=== PATIENT | male | born 1965 | race Caucasian/White ===

== ENCOUNTER 2019-05-20 09:40 | Inpatient (IN) | payer OTHER ==
[2019-05-20 11:16] VITALS: BMI 21.4
--- NOTE | 2019-05-20 11:52 | HP ---
CIWA Score Nausea/Vomitin-Cont. Nausea/Vomiting Muscle Tremors: 2 Anxiety: 1-Mildly Anxious Agitation: 1-Slight > Activity Paroxysmal Sweats: 1-Minimal Palms Moist Orientation: 3-Disoriented Date>2 days Tacttile Disturbances: 1-Very Mild Itch/Numbness Auditory Disturbances: 0-None Visual Disturbances: 0-None Headache: 5-Severe CIWA-Ar Total Score: 21 - Admission Criteria OASAS Guidelines: Admission for Medically Managed Detox: Requires at least one of the followin. CIWA greater than 12 2. Seizures within the past 24 hours 3. Delirium tremens within the past 24 hours 4. Hallucinations within the past 24 hours 5. Acute intervention needed for co occurring medical disorder 6. Acute intervention needed for co occurring psychiatric disorder 7. Severe withdrawal that cannot be handled at a lower level of care (continued vomiting, continued diarrhea, abnormal vital signs) requiring intravenous medication and/or fluids 8. Admitting History and Physical - Admission History of Present Illness: 53 year old male with history of alcohol dependence with withdrawals. He was here in 2017 and completed detox and then he was abstinent until 2018 after which he relapsed. His 10/2018 and then he started drinking heavily again in 11/2018. He has blackouts last week but denies seizures. He is drinking 1 pint of vodka daily, last drank this morning. He is also using 5 bags of heroin daily, last used today. He is also using Xanax every other day, 1 pill every other day, last used yesterday. He smokes 1ppd daily, since he was 16 years old. PMH: Asthma, HTN Psurg: None Psych: None He is homeless and in the [facility] now. He denies any legal issues pending. History Source: Patient Limitations to Obtaining History: Intoxication, Poor Historian - Past Medical History Cardiovascular: Yes: HTN Pulmonary: Yes: Asthma - Past Surgical History Past Surgical History: Yes: None - Advance Directives Advance Directives: No: Living Will, Health Care Proxy, DNR - Smoking History Smoking history: Current every day smoker Have you smoked in the past 12 months: Yes Aproximately how many cigarettes per day: 20 - Alcohol/Substance Use Hx Alcohol Use: No (1 pint vodka daily) Number of Drinks Daily: 12 History of Substance Use: reports: Heroin, Tranquilizers - Social History Usual Living Arrangement: Yes: Alone Do you think of yourself as: Straight/Heterosexual ADL: Independent Occupation: unemployed sheetrock worker History of Recent Travel: No Admission [facility] - [facility] Allergies/Adverse Reactions: Allergies Allergy/AdvReac Type Severity Reaction Status Date / Time No Known Allergies Allergy Verified 05/20/19 11:08 - Ebola screening Have you traveled outside of the country in the last 21 days: No Have you had contact with anyone from an Ebola affected area: No Have you been sick,other than usual withdrawal symptoms: No Do you have a fever: No - Review of Systems Constitutional: Chills, Diaphoresis, Unintentional Wgt. Loss EENT: reports: No Symptoms Reported Respiratory: reports: No Symptoms reported Cardiac: reports: No Symptoms Reported GI: reports: Nausea, Abdominal cramping : reports: No Symptoms Reported Musculoskeletal: reports: No Symptoms Reported Integumentary: reports: No Symptoms Reported Neuro: reports: Headache Endocrine: reports: No Symptoms Reported Hematology: reports: No Symptoms Reported Psychiatric: reports: Judgement Intact, Mood/Affect Appropiate, Orientated x3 Other Systems: Reviewed and Negative Patient History - Patient Medical History Hx Anemia: No Hx Asthma: No Hx Chronic Obstructive Pulmonary Disease (COPD): No Hx Cancer: No Hx Cardiac Disorders: No Hx Congestive Heart Failure: No Hx Hypertension: No Hx Hypercholesterolemia: No Hx Pacemaker: No HX Cerebrovascular Accident: No Hx Seizures: No Hx Dementia: No Hx Diabetes: No Hx Gastrointestinal Disorders: No Hx Liver Disease: No Hx Genitourinary Disorders: No Hx Sexually Transmitted Disorders: No Hx Renal Disease (ESRD): No Hx Thyroid Disease: No Hx Human Immunodeficiency Virus (HIV): No Hx Hepatitis C: No Hx Depression: Yes Hx Suicide Attempt: No Hx Bipolar Disorder: No Hx Schizophrenia: No - Patient Surgical History Past Surgical History: No Hx Neurologic Surgery: No Hx Cataract Extraction: No Hx Cardiac Surgery: No Hx Lung Surgery: No Hx Breast Surgery: No Hx Breast Biopsy: No Hx Abdominal Surgery: No Hx Appendectomy: No Hx Cholecystectomy: No Hx Genitourinary Surgery: No Hx Section: No Hx Orthopedic Surgery: No Anesthesia Reaction: No - PPD History Previous Implant?: Yes Documented Results: Negative w/proof Implanted On Prior R Admission?: Yes Date: 09/06/17 Results: negative PPD to be Administered?: Yes - Smoking Cessation Smoking history: Current every day smoker Aproximately how many cigarettes per day: 20 Cigars Per Day: 0 Hx Chewing Tobacco Use: No Initiated information on smoking cessation: Yes 'Breaking Loose' booklet given: 05/20/19 - Substances abused Heroin Substance route: Inhalation Frequency: Daily Amount used: 5 bags Age of first use: 14 Date of last use: 05/20/19 Alprazolam (Xanax) Substance route: Oral Frequency: 3-6 times per week Amount used: 2 mg Age of first use: 28 Date of last use: 05/19/19 Alcohol Substance route: Oral Amount used: half pint of vodka Age of first use: 23 Date of last use: 05/20/19 Admission Physical Exam BHS - Vital Signs Vital Signs: Vital Signs - 24 hr 05/20/19 05/20/19 11:07 11:40 Temperature 97.2 F L 97.2 F L Pulse Rate 104 H 104 H Respiratory 16 16 Rate - Physical General Appearance: Yes: Alcohol on Breath, Intoxicated, Tremorous, Irritable, Sweating, Anxious HEENTM: Yes: EOMI, Hearing grossly Normal, Normal ENT Inspection, Normocephalic , Normal Voice, JUAN, Pharynx Normal, Tm's normal Respiratory: Yes: Chest Non-Tender, Lungs Clear, Normal Breath Sounds, No Respiratory Distress, No Accessory Muscle Use Neck: Yes: No masses,lesions,Nodules, Supple, Trachea in good position Breast: Yes: Within Normal Limits Cardiology: Yes: Regular Rhythm, S1, S2, Tachycardia Abdominal: Yes: Non Tender, Flat, Soft, Increased Bowel Sounds Genitourinary: Yes: Within Normal Limits Back: Yes: Normal Inspection Musculoskeletal: Yes: full range of Motion, Gait Steady, Pelvis Stable Extremities: Yes: Normal Capillary Refill, Normal Inspection, Normal Range of Motion, Non-Tender Neurological: Yes: in class special education teacher II-XII NML intact, Fully Oriented, Alert, Motor Strength 5/5, Normal Mood/Affect, Normal Response Integumentary: Yes: Normal Color, Warm Lymphatic: Yes: Within Normal Limits - Diagnostic (1) Alcohol dependence with uncomplicated withdrawal Current Visit: Yes Status: Acute (2) Insomnia Current Visit: Yes Status: Acute (3) Nicotine dependence Current Visit: Yes Status: Acute Qualifiers: Nicotine product type: cigarettes Substance use status: in withdrawal Qualified Code(s): F17.213 - Nicotine dependence, cigarettes, with withdrawal (4) Opioid dependence with withdrawal Current Visit: Yes Status: Acute (5) Weight loss Current Visit: Yes Status: Acute (6) Anxiety and depression Current Visit: Yes Status: Suspected Cleared for Admission S - Detox or Rehab [facility] Level of Care: Medically Managed Detox Regimen/Protocol: Methadone, Not Applicable (ativan protocol) Screened but not Admitted - Documentation of Visit Screened but not Admitted: No Breathalyzer - Breathalyzer Breathalyzer: 0.024 Urine Drug Screen - Test Device Lot number: [id number] Expiration date: 01/21/21 - Control Is test valid?: Yes - Results Drug screen NEGATIVE: No Urine drug screen results: MOP-Opiates, MTD-Methadone, BZO-Benzodiazepines Inpatient Rehab Admission - Rehab Decision to Admit Inpatient rehab admission?: No
[2019-05-20] MEDS ORDERED: MENTHOL/PHENOL 1 EACH UD MM PRN (11:59)
[2019-05-20] MEDS ORDERED: IBUPROFEN 400 MG TABLET (FP) PO PRN (11:59)
[2019-05-20] MEDS ORDERED: MELATONIN 5 MG TABLETS PO PRN (11:59)
[2019-05-20] MEDS ORDERED: hydrOXYzine PAMOATE 25 MG CAPSULE (FP) PO PRN (11:59)
[2019-05-20] MEDS ORDERED: MAG HYDROX/AL HYDROX/SIMETH 30 ML UNIT-DOSE CUP PO PRN (11:59)
[2019-05-20] MEDS ORDERED: MAGNESIUM CITRATE 300 ML BOTTLE PO PRN (11:59)
[2019-05-20] MEDS ORDERED: ACETAMINOPHEN 325 MG TABLET (FP) PO PRN ×2 (11:59)
[2019-05-20] MEDS ORDERED: BISMUTH SUBSALICYLATE 262 MG/15 ML BTL PO PRN (11:59)
[2019-05-20] MEDS ORDERED: LORazepam 1 MG TABLET PO PRN (11:59)
[2019-05-20] MEDS ORDERED: MAGNESIUM HYDROX 2400MG/30ML ORAL SUSPENSION 30 ML CUP PO PRN (11:59)
[2019-05-20] MEDS ORDERED: cloNIDine HCL 0.1 MG TABLET PO PRN (11:59)
[2019-05-20] MEDS ORDERED: METHADONE HCL 10 MG TABLET (FOR DETOX USE ONLY) PO ONE (12:55)
[2019-05-20] MEDS: METHOCARBAMOL 500 MG TABLET PO PRN (13:19)
[2019-05-20 15:10] LABS: MCH 30.5 pg (25.7-33.7); MCHC 33.4 g/dl (32.0-35.9); MEAN CELL VOLUME 91.2 fl (80-96); MEAN PLT VOLUME 8.5 fl (7.5-11.1); PLATELET COUNT 259 K/MM3 (134-434); RDW 13.4 % (11.9-15.9); WHITE BLOOD COUNT 4.6 K/mm3 (4.0-10.0)
[2019-05-20 15:17] LABS: ALBUMIN 3.9 g/dl (3.4-5.0); BILIRUBIN,TOTAL 0.5 mg/dL (0.2-1); BLOOD UREA NITROGEN 14.8 mg/dL (7-18); CREATININE 0.5 mg/dL (0.55-1.3); POTASSIUM 4.1 mmol/L (3.5-5.1); TOT PROT 7.4 g/dl (6.4-8.2)
[2019-05-20] MEDS: LORazepam 2 MG TABLET PO SCH ×2 (17:52→22:52)
[2019-05-20] MEDS: THIAMINE HCL 100 MG TABLET (FP) PO SCH (22:53)
[2019-05-21] MEDS: LORazepam 2 MG TABLET PO SCH ×4 (06:08→22:15)
[2019-05-21] MEDS ORDERED: METHADONE HCL 10 MG TABLET (FOR DETOX USE ONLY) ONE (09:08)
[2019-05-21] MEDS ORDERED: METHADONE HCL 5 MG TABLET (FOR DETOX USE ONLY) ONE (09:09)
--- NOTE | 2019-05-21 09:41 | PN ---
S CIWA - CIWA Score Nausea/Vomitin-Mild Nausea/No Vomiting Muscle Tremors: 3 Anxiety: 3 Agitation: 3 Paroxysmal Sweats: 2 Orientation: 0-Oriented Tacttile Disturbances: 1-Very Mild Itch/Numbness Auditory Disturbances: 1-Very Mild Visual Disturbances: 0-None Headache: 2-Mild CIWA-Ar Total Score: 16 BHS COWS - Scale Resting Pulse: 0= [place] 80 or Below Sweatin= Chills/Flushing Restless Observation: 0= Sits Still Pupil Size: 1= Pupils >than Normal Bone or Joint Aches: 2= Severe Diffuse Aches Runny Nose/ Eye Tearin= None GI Upset > 30mins: 2= Nausea/Diarrhea Tremor Observation of Outstretched Hands: 2= Slight Tremor Visible Yawning Observation: 0= None Anxiety or Irritability: 2=Irritable/Anxious Goose Flesh Skin: 3=Piloerection COWS Score: 13 BHS Progress Note (SOAP) Subjective: 53 years old male admitted on 05/20/19 for alcohol benzo and opiate withdrawal sx management trated with ativan and methadone detox regimen ate breakfast tolerated food and fluid well report callus on both feet hard scaly thick skin noted not bleed pain on deep palpation recommend pressure off from callus areas report mild headaches encourage tylenal administration Objective: 05/21/19 09:40 Vital Signs Temperature 97.8 F 05/21/19 09:04 Pulse Rate 65 05/21/19 09:04 Respiratory Rate 18 05/21/19 09:04 Blood Pressure 108/70 05/21/19 09:04 O2 Sat by Pulse Oximetry (%) Laboratory Last Values WBC 4.6 K/mm3 (4.0-10.0) 05/20/19 11:45 RBC 4.60 M/mm3 (4.00-5.60) 05/20/19 11:45 Hgb 14.0 GM/dL (11.7-16.9) 05/20/19 11:45 Hct 42.0 % (35.4-49) 05/20/19 11:45 MCV 91.2 fl (80-96) 05/20/19 11:45 MCH 30.5 pg (25.7-33.7) 05/20/19 11:45 MCHC 33.4 g/dl (32.0-35.9) 05/20/19 11:45 RDW 13.4 % (11.9-15.9) 05/20/19 11:45 Plt Count 259 K/MM3 (134-434) 05/20/19 11:45 MPV 8.5 fl (7.5-11.1) D 05/20/19 11:45 Sodium 139 mmol/L (136-145) 05/20/19 11:45 Potassium 4.1 mmol/L (3.5-5.1) 05/20/19 11:45 Chloride 103 mmol/L (98-107) 05/20/19 11:45 Carbon Dioxide 26 mmol/L (21-32) 05/20/19 11:45 Anion Gap 10 MMOL/L (8-16) 05/20/19 11:45 BUN 14.8 mg/dL (7-18) 05/20/19 11:45 Creatinine 0.5 mg/dL (0.55-1.3) L 05/20/19 11:45 Est GFR (CKD-EPI)AfAm 141.39 05/20/19 11:45 Est GFR (CKD-EPI)NonAf 122.00 05/20/19 11:45 Random Glucose 108 mg/dL (74-106) H 05/20/19 11:45 Calcium 9.0 mg/dL (8.5-10.1) 05/20/19 11:45 Total Bilirubin 0.5 mg/dL (0.2-1) 05/20/19 11:45 AST 23 U/L (15-37) 05/20/19 11:45 ALT 33 U/L (13-61) 05/20/19 11:45 Alkaline Phosphatase 100 U/L (45-117) 05/20/19 11:45 Total Protein 7.4 g/dl (6.4-8.2) 05/20/19 11:45 Albumin 3.9 g/dl (3.4-5.0) 05/20/19 11:45 lab noted Assessment: 05/21/19 09:40 alcohol benzo opiate withdrawal sx Plan: continue ativan and methadone detox regimen
[2019-05-21] MEDS ORDERED: METHADONE (DETOX) 20 MG, METHADONE (DETOX) 5 MG PO ONE (10:00)
[2019-05-21] MEDS: PRENATAL VITAMINS W/ FOLIC ACID TABLET (FP) PO SCH (10:05)
[2019-05-21] MEDS: NICOTINE 14 MG/24 HOURS TOPICAL PATCH TD SCH (10:05)
[2019-05-21] MEDS: METHOCARBAMOL 500 MG TABLET PO PRN (22:15)
[2019-05-21] MEDS: THIAMINE HCL 100 MG TABLET (FP) PO SCH (22:15)
[2019-05-22] MEDS: LORazepam 1 MG TABLET PO SCH ×4 (05:18→22:01)
[2019-05-22] MEDS ORDERED: METHADONE HCL 10 MG TABLET (FOR DETOX USE ONLY) PO ONE (10:00)
[2019-05-22] MEDS: NICOTINE 14 MG/24 HOURS TOPICAL PATCH TD SCH (10:13)
[2019-05-22] MEDS: PRENATAL VITAMINS W/ FOLIC ACID TABLET (FP) PO SCH (10:13)
--- NOTE | 2019-05-22 14:31 | PN ---
S CIWA - CIWA Score Nausea/Vomitin-Int. Nausea w/Dry Heave Muscle Tremors: 2 Anxiety: 1-Mildly Anxious Agitation: 1-Slight > Activity Paroxysmal Sweats: 1-Minimal Palms Moist Orientation: 0-Oriented Tacttile Disturbances: 1-Very Mild Itch/Numbness Auditory Disturbances: 0-None Visual Disturbances: 0-None Headache: 0-None Present CIWA-Ar Total Score: 10 BHS COWS - Scale Resting Pulse: 0= [place] 80 or Below Sweatin= Chills/Flushing Restless Observation: 1= Difficult to Sit Still Pupil Size: 1= Pupils >than Normal Bone or Joint Aches: 1= Mild Discomfort Runny Nose/ Eye Tearin= Nasal Congestion GI Upset > 30mins: 2= Nausea/Diarrhea Tremor Observation of Outstretched Hands: 1= Tremor [place], Not Seen Yawning Observation: 0= None Anxiety or Irritability: 1=Feels Anxious/Irritable Goose Flesh Skin: 0=Smooth Skin COWS Score: 9 BHS Progress Note (SOAP) Subjective: interrupted sleep, sweats, shakes , nausea, vomiting x 1 Objective: 05/22/19 14:31 Vital Signs Temperature 98.5 F 05/22/19 12:38 Pulse Rate 72 05/22/19 12:38 Respiratory Rate 18 05/22/19 12:38 Blood Pressure 114/71 05/22/19 12:38 O2 Sat by Pulse Oximetry (%) Laboratory Tests 05/20/19 05/20/19 05/20/19 11:45 11:45 11:45 WBC 4.6 RBC 4.60 Hgb 14.0 Hct 42.0 MCV 91.2 MCH 30.5 MCHC 33.4 RDW 13.4 Plt Count 259 MPV 8.5 D Sodium 139 Potassium 4.1 Chloride 103 Carbon Dioxide 26 Anion Gap 10 BUN 14.8 Creatinine 0.5 L Est GFR (CKD-EPI)AfAm 141.39 Est GFR (CKD-EPI)NonAf 122.00 Random Glucose 108 H Calcium 9.0 Total Bilirubin 0.5 AST 23 ALT 33 Alkaline Phosphatase 100 Total Protein 7.4 Albumin 3.9 RPR Titer Nonreactive pt aox3 lying in bed in nad. Assessment: 05/22/19 14:32 withdrawal sx's Plan: cont. detox increase fluids
[2019-05-22] MEDS: THIAMINE HCL 100 MG TABLET (FP) PO SCH (22:01)
[2019-05-23] MEDS ORDERED: LORazepam 0.5 MG TABLET PO PRN
[2019-05-23] MEDS: LORazepam 0.5 MG TABLET PO SCH ×4 (06:07→22:03)
[2019-05-23] MEDS ORDERED: METHADONE HCL 5 MG TABLET (FOR DETOX USE ONLY) ONE (08:55)
[2019-05-23] MEDS ORDERED: METHADONE HCL 10 MG TABLET (FOR DETOX USE ONLY) ONE (08:55)
[2019-05-23] MEDS ORDERED: METHADONE (DETOX) 10 MG, METHADONE (DETOX) 5 MG PO ONE (10:00)
[2019-05-23] MEDS: PRENATAL VITAMINS W/ FOLIC ACID TABLET (FP) PO SCH (10:28)
[2019-05-23] MEDS: NICOTINE 14 MG/24 HOURS TOPICAL PATCH TD SCH (10:29)
--- NOTE | 2019-05-23 11:19 | PN ---
[facility] CIWA - CIWA Score Nausea/Vomitin-No Nausea/No Vomiting Muscle Tremors: None Anxiety: 2 Agitation: 0-Normal Activity Paroxysmal Sweats: 3 Orientation: 0-Oriented Tacttile Disturbances: 0-None Auditory Disturbances: 0-None Visual Disturbances: 0-None Headache: 2-Mild CIWA-Ar Total Score: 7 S COWS - Scale Resting Pulse: 0= [place] 80 or Below Sweatin= Beads of Sweat on Face Restless Observation: 1= Difficult to Sit Still Pupil Size: 0= Normal to Room Light Bone or Joint Aches: 0= None Runny Nose/ Eye Tearin= None GI Upset > 30mins: 0= None Tremor Observation of Outstretched Hands: 0= None Yawning Observation: 1= 1-2x During Session Anxiety or Irritability: 2=Irritable/Anxious Goose Flesh Skin: 0=Smooth Skin COWS Score: 7 [facility] Progress Note (SOAP) Subjective: c/o headache, anxiety, and sweats. Objective: 05/23/19 11:17 Vital Signs 05/23/19 05/23/19 05/23/19 03:30 06:27 09:10 Temperature 97.3 F L 97.8 F Pulse Rate 62 69 Respiratory 18 18 18 Rate Blood Pressure 112/60 106/61 Laboratory Last Values WBC 4.6 K/mm3 (4.0-10.0) 05/20/19 11:45 RBC 4.60 M/mm3 (4.00-5.60) 05/20/19 11:45 Hgb 14.0 GM/dL (11.7-16.9) 05/20/19 11:45 Hct 42.0 % (35.4-49) 05/20/19 11:45 MCV 91.2 fl (80-96) 05/20/19 11:45 MCH 30.5 pg (25.7-33.7) 05/20/19 11:45 MCHC 33.4 g/dl (32.0-35.9) 05/20/19 11:45 RDW 13.4 % (11.9-15.9) 05/20/19 11:45 Plt Count 259 K/MM3 (134-434) 05/20/19 11:45 MPV 8.5 fl (7.5-11.1) D 05/20/19 11:45 Sodium 139 mmol/L (136-145) 05/20/19 11:45 Potassium 4.1 mmol/L (3.5-5.1) 05/20/19 11:45 Chloride 103 mmol/L (98-107) 05/20/19 11:45 Carbon Dioxide 26 mmol/L (21-32) 05/20/19 11:45 Anion Gap 10 MMOL/L (8-16) 05/20/19 11:45 BUN 14.8 mg/dL (7-18) 05/20/19 11:45 Creatinine 0.5 mg/dL (0.55-1.3) L 05/20/19 11:45 Est GFR (CKD-EPI)AfAm 141.39 05/20/19 11:45 Est GFR (CKD-EPI)NonAf 122.00 05/20/19 11:45 Random Glucose 108 mg/dL (74-106) H 05/20/19 11:45 Calcium 9.0 mg/dL (8.5-10.1) 05/20/19 11:45 Total Bilirubin 0.5 mg/dL (0.2-1) 05/20/19 11:45 AST 23 U/L (15-37) 05/20/19 11:45 ALT 33 U/L (13-61) 05/20/19 11:45 Alkaline Phosphatase 100 U/L (45-117) 05/20/19 11:45 Total Protein 7.4 g/dl (6.4-8.2) 05/20/19 11:45 Albumin 3.9 g/dl (3.4-5.0) 05/20/19 11:45 RPR Titer Nonreactive (NONREACTIVE) 05/20/19 11:45 Labs noted. Assessment: 05/23/19 11:17 AOX3, in no acute respiratory distress. Full ROM, ambulating in the unit. withdrawal symptoms. Plan: continue detox.
[2019-05-23] MEDS: THIAMINE HCL 100 MG TABLET (FP) PO SCH (22:03)
[2019-05-24] MEDS ORDERED: LORazepam 0.5 MG TABLET PO ONE (05:00)
--- NOTE | 2019-05-24 09:55 | PN ---
S CIWA - CIWA Score Nausea/Vomitin-No Nausea/No Vomiting Muscle Tremors: 1-None Visible, but [place] Anxiety: 2 Agitation: 1-Slight > Activity Paroxysmal Sweats: No Perspiration Orientation: 0-Oriented Tacttile Disturbances: 0-None Auditory Disturbances: 0-None Visual Disturbances: 0-None Headache: 0-None Present CIWA-Ar Total Score: 4 BHS COWS - Scale Resting Pulse: 0= [place] 80 or Below Sweatin= Chills/Flushing Restless Observation: 0= Sits Still Pupil Size: 0= Normal to Room Light Bone or Joint Aches: 1= Mild Discomfort Runny Nose/ Eye Tearin= None GI Upset > 30mins: 0= None Tremor Observation of Outstretched Hands: 1= Tremor [place], Not Seen Yawning Observation: 0= None Anxiety or Irritability: 1=Feels Anxious/Irritable Goose Flesh Skin: 0=Smooth Skin COWS Score: 4 S Progress Note (SOAP) Subjective: 53 years old male admitted on 05/20/19 for alcohol benzo opiate withdrawal sx management treated with ativan and methadone detox regimen patient tolerated well feeling better discuss aftercare with staff discuss medication assisted treatment program [employer] narcan from pharmacy Objective: 05/24/19 09:57 Vital Signs Temperature 98.3 F 05/24/19 09:13 Pulse Rate 70 05/24/19 09:13 Respiratory Rate 18 05/24/19 09:13 Blood Pressure 114/64 05/24/19 09:13 O2 Sat by Pulse Oximetry (%) Laboratory Last Values WBC 4.6 K/mm3 (4.0-10.0) 05/20/19 11:45 RBC 4.60 M/mm3 (4.00-5.60) 05/20/19 11:45 Hgb 14.0 GM/dL (11.7-16.9) 05/20/19 11:45 Hct 42.0 % (35.4-49) 05/20/19 11:45 MCV 91.2 fl (80-96) 05/20/19 11:45 MCH 30.5 pg (25.7-33.7) 05/20/19 11:45 MCHC 33.4 g/dl (32.0-35.9) 05/20/19 11:45 RDW 13.4 % (11.9-15.9) 05/20/19 11:45 Plt Count 259 K/MM3 (134-434) 05/20/19 11:45 MPV 8.5 fl (7.5-11.1) D 05/20/19 11:45 Sodium 139 mmol/L (136-145) 05/20/19 11:45 Potassium 4.1 mmol/L (3.5-5.1) 05/20/19 11:45 Chloride 103 mmol/L (98-107) 05/20/19 11:45 Carbon Dioxide 26 mmol/L (21-32) 05/20/19 11:45 Anion Gap 10 MMOL/L (8-16) 05/20/19 11:45 BUN 14.8 mg/dL (7-18) 05/20/19 11:45 Creatinine 0.5 mg/dL (0.55-1.3) L 05/20/19 11:45 Est GFR (CKD-EPI)AfAm 141.39 05/20/19 11:45 Est GFR (CKD-EPI)NonAf 122.00 05/20/19 11:45 Random Glucose 108 mg/dL (74-106) H 05/20/19 11:45 Calcium 9.0 mg/dL (8.5-10.1) 05/20/19 11:45 Total Bilirubin 0.5 mg/dL (0.2-1) 05/20/19 11:45 AST 23 U/L (15-37) 05/20/19 11:45 ALT 33 U/L (13-61) 05/20/19 11:45 Alkaline Phosphatase 100 U/L (45-117) 05/20/19 11:45 Total Protein 7.4 g/dl (6.4-8.2) 05/20/19 11:45 Albumin 3.9 g/dl (3.4-5.0) 05/20/19 11:45 RPR Titer Nonreactive (NONREACTIVE) 05/20/19 11:45 lab noted Assessment: 05/24/19 09:58 alcohol benzo opiate withdrawal sx Plan: continue ativan and methadone detox regimen
[2019-05-24] MEDS ORDERED: METHADONE HCL 10 MG TABLET (FOR DETOX USE ONLY) PO ONE (10:00)
[2019-05-24] MEDS: PRENATAL VITAMINS W/ FOLIC ACID TABLET (FP) PO SCH (10:04)
[2019-05-24] MEDS: NICOTINE 14 MG/24 HOURS TOPICAL PATCH TD SCH (10:05)
[2019-05-24] MEDS: METHOCARBAMOL 500 MG TABLET PO PRN (10:05)
[2019-05-24] MEDS: THIAMINE HCL 100 MG TABLET (FP) PO SCH (22:44)
[2019-05-25] MEDS ORDERED: METHADONE HCL 5 MG TABLET (FOR DETOX USE ONLY) PO ONE (06:00)
[2019-05-25 09:18] VITALS: BP 129/75; PULSE 74; TEMP 97.2
[2019-05-25] MEDS: PRENATAL VITAMINS W/ FOLIC ACID TABLET (FP) PO SCH (10:41)
[2019-05-25] MEDS: NICOTINE 14 MG/24 HOURS TOPICAL PATCH TD SCH (10:41)
--- NOTE | 2019-05-25 13:50 | DS ---
[facility] Detox Discharge Summary Admission Date: 05/20/19 Discharge Date: 05/25/19 - History Present History: Opioid Dependence, Sedative Dependence Additional Comments: 53 years old male admitted on 05/20/19 for alcohol benzo opiate withdrawal sx management treated with ativan and methadone detox regimen patient is alert oriented x 3 respiratory clear lung bilaterally on auscultation abdomen soft no rebound tenderness skin warm and dry - Physical Exam Results Vital Signs: Vital Signs Temperature 97.2 F L 05/25/19 09:17 Pulse Rate 74 05/25/19 09:17 Respiratory Rate 18 05/25/19 09:17 Blood Pressure 129/75 05/25/19 09:17 O2 Sat by Pulse Oximetry (%) Pertinent Admission Physical Exam Findings: alcohol benzo opiate withdrawal sx Laboratory Last Values WBC 4.6 K/mm3 (4.0-10.0) 05/20/19 11:45 RBC 4.60 M/mm3 (4.00-5.60) 05/20/19 11:45 Hgb 14.0 GM/dL (11.7-16.9) 05/20/19 11:45 Hct 42.0 % (35.4-49) 05/20/19 11:45 MCV 91.2 fl (80-96) 05/20/19 11:45 MCH 30.5 pg (25.7-33.7) 05/20/19 11:45 MCHC 33.4 g/dl (32.0-35.9) 05/20/19 11:45 RDW 13.4 % (11.9-15.9) 05/20/19 11:45 Plt Count 259 K/MM3 (134-434) 05/20/19 11:45 MPV 8.5 fl (7.5-11.1) D 05/20/19 11:45 Sodium 139 mmol/L (136-145) 05/20/19 11:45 Potassium 4.1 mmol/L (3.5-5.1) 05/20/19 11:45 Chloride 103 mmol/L (98-107) 05/20/19 11:45 Carbon Dioxide 26 mmol/L (21-32) 05/20/19 11:45 Anion Gap 10 MMOL/L (8-16) 05/20/19 11:45 BUN 14.8 mg/dL (7-18) 05/20/19 11:45 Creatinine 0.5 mg/dL (0.55-1.3) L 05/20/19 11:45 Est GFR (CKD-EPI)AfAm 141.39 05/20/19 11:45 Est GFR (CKD-EPI)NonAf 122.00 05/20/19 11:45 Random Glucose 108 mg/dL (74-106) H 05/20/19 11:45 Calcium 9.0 mg/dL (8.5-10.1) 05/20/19 11:45 Total Bilirubin 0.5 mg/dL (0.2-1) 05/20/19 11:45 AST 23 U/L (15-37) 05/20/19 11:45 ALT 33 U/L (13-61) 05/20/19 11:45 Alkaline Phosphatase 100 U/L (45-117) 05/20/19 11:45 Total Protein 7.4 g/dl (6.4-8.2) 05/20/19 11:45 Albumin 3.9 g/dl (3.4-5.0) 05/20/19 11:45 RPR Titer Nonreactive (NONREACTIVE) 05/20/19 11:45 lab noted - Treatment Hospital Course: Detox Protocol Followed, Detoxed Safely, Responded well, Discharged Condition Good, Rehab Referral Accepted Patient has Accepted [facility] - Medication Discharge Medications: Ambulatory Orders Naloxone HCl [Narcan] 4 mg NS ASDIR PRN #1 spray 05/21/19 - Diagnosis (1) Opioid abuse, uncomplicated Status: Acute (2) Alcohol dependence with uncomplicated withdrawal Status: Acute (3) Nicotine dependence Status: Acute Qualifiers: Nicotine product type: cigarettes Substance use status: in withdrawal Qualified Code(s): F17.213 - Nicotine dependence, cigarettes, with withdrawal (4) Sedative, hypnotic or anxiolytic dependence with withdrawal, uncomplicated Status: Acute (5) Weight loss Status: Acute - AMA Did Patient Leave Against Medical Advice: No CIWA Score - CIWA Score Nausea/Vomitin-No Nausea/No Vomiting Muscle Tremors: 1-None Visible, but [place] Anxiety: 1-Mildly Anxious Agitation: 0-Normal Activity Paroxysmal Sweats: No Perspiration Orientation: 0-Oriented Tacttile Disturbances: 0-None Auditory Disturbances: 0-None Visual Disturbances: 0-None Headache: 0-None Present CIWA-Ar Total Score: 2 COWS (PN) - Opiate Withdrawal Resting Pulse: 0= [place] 80 or Below Sweatin= Chills/Flushing Restless Observation: 0= Sits Still Pupil Size: 0= Normal to Room Light Bone or Joint Aches: 0= None Runny Nose/ Eye Tearin= None GI Upset > 30mins: 0= None Tremor Observation of Outstretched Hands: 0= None Yawning Observation: 0= None Anxiety or Irritability: 1=Feels Anxious/Irritable Goose Flesh Skin: 0=Smooth Skin COWS Score: 2
== END 2019-05-25 13:17 | disposition other institution (70) | DRG 773 ==
LOC: YASAS 09:40 → Y3N 12:45
PROVIDERS: ADMIT Allergy & Immunology; ATTEND Allergy & Immunology
PROC: HZ2ZZZZ Detoxification Services for Substance Abuse Treatment (ICD-10-PCS; principal; 2019-05-20)
DX: F10.230 Alcohol dependence with withdrawal, uncomplicated (principal); F11.23 Opioid dependence with withdrawal; F13.230 Sedative, hypnotic or anxiolytic dependence with withdrawal, uncomplicated; F17.213 Nicotine dependence, cigarettes, with withdrawal; F41.9 Anxiety disorder, unspecified; F32.9 Major depressive disorder, single episode, unspecified; G47.00 Insomnia, unspecified; I10 Essential (primary) hypertension; J45.909 Unspecified asthma, uncomplicated; L84 Corns and callosities; R63.4 Abnormal weight loss; Z68.21 Body mass index [BMI] 21.0-21.9, adult; Z59.0 Homelessness
CPT/HCPCS: 36415; 80053; 85027; 86593; J0735

== ENCOUNTER 2019-05-25 13:19 | Inpatient (IN) | payer OTHER ==
[2019-05-25] MEDS ORDERED: guaiFENesin 200 MG/10 ML 10 ML UNIT-DOSE CUPS PO PRN (13:53)
[2019-05-25] MEDS ORDERED: LOPERAMIDE HCL 2 MG CAPSULE PO PRN (13:53)
[2019-05-25] MEDS ORDERED: MENTHOL/PHENOL 1 EACH UD MM PRN (13:53)
[2019-05-25] MEDS ORDERED: NICOTINE POLACRILEX 2 MG GUM BUC PRN (13:53)
[2019-05-25] MEDS ORDERED: MAGNESIUM HYDROX 2400MG/30ML ORAL SUSPENSION 30 ML CUP PO PRN (13:53)
[2019-05-25] MEDS ORDERED: ACETAMINOPHEN 325 MG TABLET (FP) PO PRN (13:53)
[2019-05-25] MEDS ORDERED: IBUPROFEN 400 MG TABLET (FP) PO PRN (13:53)
[2019-05-25] MEDS ORDERED: MAG HYDROX/AL HYDROX/SIMETH 30 ML UNIT-DOSE CUP PO PRN (13:53)
[2019-05-25] MEDS ORDERED: MAGNESIUM CITRATE 300 ML BOTTLE PO PRN (13:53)
[2019-05-25] MEDS ORDERED: P-EPHED 60MG/TRIPROLIDI 2.5MG TABLET PO PRN (13:53)
--- NOTE | 2019-05-25 13:53 | HP ---
[facility] Rehab Assess/Revision - Admission History Admitted to Rehab from: [facility] Date of Admission to Rehab: 05/25/19 - Vital signs Vital Signs: Vital Signs Period Temp Pulse Resp BP Sys/Fay Pulse Ox Last 24 Hr 97.9 F 74 18 121/70 - Findings Detox History & Physical reviewed: Yes Concur with findings: Yes Comments/Additional Findings: transferred from detox to rehab admission as per protocol Inpatient Rehab Admission - Rehab Decision to Admit Inpatient rehab admission?: Yes - Initial Determination Are CD services needed?: Yes Free of communicable disease: Yes Not in need of hospitalization: Yes - Rehab Admission Criteria Previous failed treatment: Yes Poor recovery environment: Yes Comorbidities: Yes Lacks judgement: Yes Patient is meeting Inpatient Rehab admission criteria:: Yes
[2019-05-25] MEDS ORDERED: THIAMINE HCL 100 MG TABLET (FP) PO SCH (22:00)
[2019-05-25] MEDS ORDERED: MELATONIN 5 MG TABLETS PO PRN (22:00)
[2019-05-26 06:31] VITALS: BP 108/58; PULSE 63; TEMP 97.4
[2019-05-26] MEDS ORDERED: PRENATAL VITAMINS W/ FOLIC ACID TABLET (FP) PO SCH (10:00)
[2019-05-26] MEDS ORDERED: NICOTINE 14 MG/24 HOURS TOPICAL PATCH TD SCH (10:00)
--- NOTE | 2019-05-26 14:38 | DS ---
[facility] Rehab Discharge Summary - [facility] Rehab Discharge Summary Admission Date: 05/25/19 Discharge Date: 05/26/19 - History Present History: Alcohol dependence, Opioid dependence, Sedative dependence Pertinent Past History: Pt was transferred to rehab from detox yesterday. Pt states he wants to go home and will go to outpt treatment at [facility]. Pt completed treatment with ativan and methadone for polysubstance use: alcohol, benzo and opiates. Pt encouraged to for outpt MAT with methadone or Suboxone. Pt has narcan kit. PE alert and oriented lungs clear heart RRR h/o polysubstance use- f/u outpt and has PCP- Dr. Manzanares for HTN/asthma f/u on 06/08. Pt has meds until he is seen by PCP - Discharge Physical Exam Vital Signs: Vital Signs Temperature 97.4 F L 05/26/19 06:30 Pulse Rate 63 05/26/19 06:30 Respiratory Rate 18 05/26/19 06:30 Blood Pressure 108/58 L 05/26/19 06:30 O2 Sat by Pulse Oximetry (%) - Treatment Discharge Condition: Discharge condition good - Medication Discharge Medications: Ambulatory Orders Naloxone HCl [Narcan] 4 mg NS ASDIR PRN #1 spray 05/21/19 - Medication-Assisted Treatment (MAT) Medication-Assisted Treatment (MAT): No - Discharge Instructions Diet, activity, other medical instructions: Diet: Activity: Other medical instructions:
== END 2019-05-26 15:00 | disposition home or self-care (01) | DRG 772 ==
LOC: YASAS 13:19 → Y3W 13:20
PROVIDERS: ADMIT Neuromusculoskeletal Medicine & OMM; ATTEND Neuromusculoskeletal Medicine & OMM
PROC: HZ42ZZZ Group Counseling for Substance Abuse Treatment, Cognitive-Behavioral (ICD-10-PCS; principal; 2019-05-25)
DX: F10.20 Alcohol dependence, uncomplicated (principal); F11.20 Opioid dependence, uncomplicated; F13.20 Sedative, hypnotic or anxiolytic dependence, uncomplicated; I10 Essential (primary) hypertension; J45.909 Unspecified asthma, uncomplicated

== ENCOUNTER 2020-03-17 13:04 | Inpatient (IN) | payer OTHER ==
--- NOTE | 2020-03-17 13:38 | BHS.RME ---
Substance Use & Tx History - Substance Use History Alcohol Substance amount: one pint vodka Frequency of use: Daily Substance route: Oral Date of Last Use: 03/16/20 Heroin Substance amount: 9-12 bags Frequency of use: Daily Substance route: Inhalation (ex: sniffing or snorting) Date of Last Use: 03/17/20 Xanax Substance amount: 2 mg x 2 tabs Frequency of use: Daily Substance route: Oral Date of Last Use: 03/17/20 Marijuana/Hashish Substance amount: 1/8 daily Frequency of use: Daily Substance route: Smoking Date of Last Use: 03/16/20 Nicotine Substance amount: one pack Frequency of use: Daily Substance route: Smoking Date of Last Use: 03/17/20 - Last Treatment Date of last treatment: AprMay 2019, detox and one day rehab Physical/Psych/Mental Status - Behavior General Behavior: Increased activity (restlessness, agitation) Eye Contact: Normal - Cooperativeness Cooperativeness: Cooperative - Thinking Thought Processes: Tight Thought content: Future oriented - Physical Health Problems Is patient presently having any pain?: No Does patient presently have any injuries (include location): No Does patient currently have a fever: No COWS - Scale Resting Pulse: 1= [place] 81-100 Sweatin=Flushed/Facial Moisture Restless Observation: 1= Difficult to Sit Still Pupil Size: 0= Normal to Room Light Bone or Joint Aches: 1= Mild Discomfort Runny Nose/ Eye Tearin= Runny Nose/Eyes GI Upset > 30mins: 1= Stomach Cramp Tremor Observation: 2= Slight Tremor Visible Yawning Observation: 0= None Anxiety or Irritability: 2=Irritable/Anxious Goose Flesh Skin: 0=Smooth Skin COWS Score: 12 CIWA Nausea/Vomitin-Mild Nausea/No Vomiting Muscle Tremors: 3 Anxiety: 3 Agitation: 2 Paroxysmal Sweats: 3 Orientation: 0-Oriented Tacttile Disturbances: 0-None Auditory Disturbances: 0-None Visual Disturbances: 0-None Headache: 0-None Present CIWA-Ar Total Score: 12
[2020-03-17 14:36] VITALS: BMI 20.9
--- NOTE | 2020-03-17 14:46 | HP ---
COWS - Scale Resting Pulse: 1= [place] 81-100 Sweatin=Flushed/Facial Moisture Restless Observation: 1= Difficult to Sit Still Pupil Size: 0= Normal to Room Light Bone or Joint Aches: 1= Mild Discomfort Runny Nose/ Eye Tearin= Runny Nose/Eyes GI Upset > 30mins: 1= Stomach Cramp Tremor Observation: 2= Slight Tremor Visible Yawning Observation: 0= None Anxiety or Irritability: 2=Irritable/Anxious Goose Flesh Skin: 0=Smooth Skin COWS Score: 12 CIWA Score Nausea/Vomitin-Mild Nausea/No Vomiting Muscle Tremors: 3 Anxiety: 3 Agitation: 2 Paroxysmal Sweats: 3 Orientation: 0-Oriented Tacttile Disturbances: 0-None Auditory Disturbances: 0-None Visual Disturbances: 0-None Headache: 0-None Present CIWA-Ar Total Score: 12 - Admission Criteria OASAS Guidelines: Admission for Medically Managed Detox: Requires at least one of the followin. CIWA greater than 12 2. Seizures within the past 24 hours 3. Delirium tremens within the past 24 hours 4. Hallucinations within the past 24 hours 5. Acute intervention needed for co occurring medical disorder 6. Acute intervention needed for co occurring psychiatric disorder 7. Severe withdrawal that cannot be handled at a lower level of care (continued vomiting, continued diarrhea, abnormal vital signs) requiring intravenous medication and/or fluids 8. 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 He was here in 04/2019, and completed detox and then was abstinent for 2 weeks after which he relapsed. alcohol: He is drinking 1 pint of vodka daily, last drank last night, h/o blackouts last week but denies seizures. He is also using 9-12, sniffing bags of heroin daily, last used today- no h/o OD He is also using Xanax 2mg- 1 pill every other day, last used yesterday. He smokes 1ppd daily, since he was 16 years old. PMH: Asthma, HTN Psurg: None Psych: None He is homeless and in the intermediate system now. He denies any legal issues pending. ESSENCE- 0 Utox- Fen, Mop - Ebola screening Have you traveled outside of the country in the last 21 days: No Have you had contact with anyone from an Ebola affected area: No Have you been sick,other than usual withdrawal symptoms: No Do you have a fever: No - Review of Systems Constitutional: No Symptoms Reported EENT: reports: No Symptoms Reported Respiratory: reports: No Symptoms reported Cardiac: reports: No Symptoms Reported GI: reports: No Symptoms Reported : reports: No Symptoms Reported Musculoskeletal: reports: No Symptoms Reported Integumentary: reports: No Symptoms Reported Neuro: reports: No Symptoms reported Endocrine: reports: No Symptoms Reported Hematology: reports: No Symptoms Reported Psychiatric: reports: No Sypmtoms Reported Other Systems: Reviewed and Negative Patient History - Patient Medical History Hx Anemia: No Hx Asthma: Yes Hx Chronic Obstructive Pulmonary Disease (COPD): No Hx Cancer: No Hx Cardiac Disorders: No Hx Congestive Heart Failure: No Hx Hypertension: No Hx Hypercholesterolemia: No Hx Pacemaker: No HX Cerebrovascular Accident: No Hx Seizures: No Hx Dementia: No Hx Diabetes: No Hx Gastrointestinal Disorders: No Hx Liver Disease: No Hx Genitourinary Disorders: No Hx Sexually Transmitted Disorders: No Hx Renal Disease (ESRD): No Hx Thyroid Disease: No Hx Human Immunodeficiency Virus (HIV): No Hx Hepatitis C: No Hx Depression: No Hx Suicide Attempt: No Hx Bipolar Disorder: No Hx Schizophrenia: No - Patient Surgical History Past Surgical History: No Hx Neurologic Surgery: No Hx Cataract Extraction: No Hx Cardiac Surgery: No Hx Lung Surgery: No Hx Breast Surgery: No Hx Breast Biopsy: No Hx Abdominal Surgery: No Hx Appendectomy: No Hx Cholecystectomy: No Hx Genitourinary Surgery: No Hx Section: No Hx Orthopedic Surgery: No Anesthesia Reaction: No - PPD History Previous Implant?: Yes Documented Results: Negative w/o proof Implanted On Prior [facility] Admission?: Yes Date: 09/06/17 Results: 0 mm PPD to be Administered?: Yes - Smoking Cessation Smoking history: Current every day smoker Have you smoked in the past 12 months: Yes Aproximately how many cigarettes per day: 20 Cigars Per Day: 0 Hx Chewing Tobacco Use: No Initiated information on smoking cessation: Yes 'Breaking Loose' booklet given: 03/17/20 - Substance & Tx. History Hx Alcohol Use: Yes Hx Substance Use: Yes Substance Use Type: Alcohol, Heroin, Opiates, Tranquilizers Hx Substance Use Treatment: Yes Admission Physical Exam [facility] - Vital Signs Vital Signs: Vital Signs - 24 hr 03/17/20 14:35 Temperature 97.5 F L Pulse Rate 82 Respiratory 20 Rate Blood Pressure 118/79 - Physical General Appearance: Yes: Within Normal Limits HEENTM: Yes: Within Normal Limits, EOMI, Hearing grossly Normal, Normal Voice Respiratory: Yes: Within Normal Limits, Lungs Clear Neck: Yes: Within Normal Limits Cardiology: Yes: Within Normal Limits Abdominal: Yes: Within Normal Limits Genitourinary: Yes: Within Normal Limits Back: Yes: Within Normal Limits Musculoskeletal: Yes: Within Normal Limits Extremities: Yes: Within Normal Limits Neurological: Yes: Within Normal Limits Integumentary: Yes: Within Normal Limits Lymphatic: Yes: Within Normal Limits - Diagnostic (1) Alcohol dependence with uncomplicated withdrawal Current Visit: No Status: Acute (2) Nicotine dependence Current Visit: No Status: Acute Qualifiers: Nicotine product type: cigarettes Substance use status: in withdrawal Qualified Code(s): F17.213 - Nicotine dependence, cigarettes, with withdrawal (3) Opioid dependence with withdrawal Current Visit: No Status: Acute (4) Sedative, hypnotic or anxiolytic dependence with withdrawal, uncomplicated Current Visit: No Status: Acute (5) Weight loss Current Visit: No Status: Acute Breathalyzer - Breathalyzer Breathalyzer: 0 Urine Drug Screen - Test Device Lot number: [id number] Expiration date: 09/29/21 - Control Is test valid?: Yes - Results Drug screen NEGATIVE: No Urine drug screen results: FEN-Fentanyl, MOP-Opiates Inpatient Rehab Admission - Rehab Decision to Admit Inpatient rehab admission?: No
[2020-03-17] MEDS ORDERED: MENTHOL/PHENOL 1 EACH UD MM PRN (14:51)
[2020-03-17] MEDS ORDERED: ONDANSETRON *ODT* 4 MG TABLET SL PRN (14:51)
[2020-03-17] MEDS ORDERED: MAG HYDROX/AL HYDROX/SIMETH 30 ML UNIT-DOSE CUP PO PRN (14:51)
[2020-03-17] MEDS ORDERED: MAGNESIUM CITRATE 300 ML BOTTLE PO PRN (14:51)
[2020-03-17] MEDS ORDERED: BISMUTH SUBSALICYLATE 262 MG/15 ML BTL PO PRN (14:51)
[2020-03-17] MEDS ORDERED: IBUPROFEN 400 MG TABLET (FP) PO PRN (14:51)
[2020-03-17] MEDS ORDERED: ACETAMINOPHEN 325 MG TABLET (FP) PO PRN ×2 (14:51)
[2020-03-17] MEDS ORDERED: NICOTINE POLACRILEX 2 MG GUM BUC PRN (14:51)
[2020-03-17] MEDS ORDERED: MAGNESIUM HYDROX 2400MG/30ML ORAL SUSPENSION 30 ML CUP PO PRN (14:51)
[2020-03-17] MEDS ORDERED: ALBUTEROL SO4 HFA INHALER IH PRN (14:52)
[2020-03-17] MEDS ORDERED: chlordiazePOXIDE HCL 25 MG CAPSULE PO ONE (14:53)
[2020-03-17] MEDS ORDERED: chlordiazePOXIDE HCL 25 MG CAPSULE PO PRN (14:53)
[2020-03-17] MEDS ORDERED: METHADONE HCL 10 MG TABLET (FOR DETOX USE ONLY) PO ONE (14:54)
[2020-03-17] MEDS ORDERED: cloNIDine HCL 0.1 MG TABLET PO PRN (14:54)
[2020-03-17] MEDS: chlordiazePOXIDE HCL 25 MG CAPSULE PO SCH ×2 (18:14→23:11)
[2020-03-17] MEDS: hydrOXYzine PAMOATE 25 MG CAPSULE (FP) PO SCH ×2 (18:17→23:10)
[2020-03-17] MEDS: MELATONIN 5 MG TABLETS PO SCH (23:10)
[2020-03-17] MEDS: THIAMINE HCL 100 MG TABLET (FP) PO SCH (23:11)
[2020-03-18] MEDS: chlordiazePOXIDE HCL 25 MG CAPSULE PO SCH ×4 (06:26→23:10)
[2020-03-18] MEDS: hydrOXYzine PAMOATE 25 MG CAPSULE (FP) PO SCH (06:27)
[2020-03-18] MEDS ORDERED: ALBUTEROL SO4 HFA INHALER IH PRN (08:41)
[2020-03-18] MEDS ORDERED: METHADONE HCL 5 MG TABLET (FOR DETOX USE ONLY) ONE (09:28)
[2020-03-18] MEDS ORDERED: METHADONE HCL 10 MG TABLET (FOR DETOX USE ONLY) ONE (09:28)
[2020-03-18] MEDS ORDERED: METHADONE (DETOX) 20 MG, METHADONE (DETOX) 5 MG PO ONE (10:00)
[2020-03-18 10:14] LABS: HEMATOCRIT 42.1 % (35.4-49); HEMOGLOBIN 14.1 GM/dL (11.7-16.9); MCH 30.6 pg (25.7-33.7); MCHC 33.5 g/dl (32.0-35.9); MEAN CELL VOLUME 91.2 fl (80-96); PLATELET COUNT 249 K/MM3 (134-434); RBC 4.62 M/mm3 (4.00-5.60); RDW 13.3 % (11.9-15.9); WHITE BLOOD COUNT 6.4 K/mm3 (4.0-10.0)
[2020-03-18 10:19] LABS: BILIRUBIN,TOTAL 1.1 mg/dL (0.2-1); BLOOD UREA NITROGEN 15.1 mg/dL (7-18); CALCIUM 8.8 mg/dL (8.5-10.1); CREATININE 0.7 mg/dL (0.55-1.3); POTASSIUM 4.4 mmol/L (3.5-5.1); TOT PROT 7.6 g/dl (6.4-8.2)
[2020-03-18] MEDS: PRENATAL VITAMINS W/ FOLIC ACID TABLET (FP) PO SCH (10:55)
--- NOTE | 2020-03-18 12:17 | PN ---
[facility] CIWA - CIWA Score Nausea/Vomitin-No Nausea/No Vomiting Muscle Tremors: 3 Anxiety: 3 Agitation: 3 Paroxysmal Sweats: 2 Orientation: 0-Oriented Tacttile Disturbances: 0-None Auditory Disturbances: 0-None Visual Disturbances: 0-None Headache: 0-None Present CIWA-Ar Total Score: 11 S COWS - Scale Resting Pulse: 0= [place] 80 or Below Sweatin= Chills/Flushing Restless Observation: 1= Difficult to Sit Still Pupil Size: 0= Normal to Room Light Bone or Joint Aches: 1= Mild Discomfort Runny Nose/ Eye Tearin= Nasal Congestion GI Upset > 30mins: 0= None Tremor Observation of Outstretched Hands: 1= Tremor [place], Not Seen Yawning Observation: 1= 1-2x During Session Anxiety or Irritability: 2=Irritable/Anxious Goose Flesh Skin: 0=Smooth Skin COWS Score: 8 [facility] Progress Note (SOAP) Subjective: anxiety sweats agitation restless body aches interrupted sleep Objective: 03/18/20 12:14 Vital Signs Temperature 98.4 F 03/18/20 08:48 Pulse Rate 66 03/18/20 08:48 Respiratory Rate 17 03/18/20 08:48 Blood Pressure 130/78 03/18/20 08:48 O2 Sat by Pulse Oximetry (%) 98 03/18/20 08:48 Laboratory Tests 03/18/20 03/18/20 03/18/20 08:00 08:00 08:00 WBC 6.4 RBC 4.62 Hgb 14.1 Hct 42.1 MCV 91.2 MCH 30.6 MCHC 33.5 RDW 13.3 Plt Count 249 MPV 10.0 D Sodium 135 L Potassium 4.4 Chloride 97 L Carbon Dioxide 31 Anion Gap 6 L BUN 15.1 Creatinine 0.7 Est GFR (CKD-EPI)AfAm 122.27 Est GFR (CKD-EPI)NonAf 105.50 Random Glucose 130 H Calcium 8.8 Total Bilirubin 1.1 H AST 20 ALT 24 Alkaline Phosphatase 116 Total Protein 7.6 Albumin 4.0 Syphilis Serology Non-reactive labs noted aaox3 ambulating no acute distress Assessment: 03/18/20 12:16 withdrawals Plan: continue detox increase fluids
[2020-03-18] MEDS ORDERED: MASKS NR ONE (15:34)
[2020-03-18] MEDS: THIAMINE HCL 100 MG TABLET (FP) PO SCH (23:10)
[2020-03-18] MEDS: MELATONIN 5 MG TABLETS PO SCH (23:12)
[2020-03-19] MEDS: chlordiazePOXIDE HCL 25 MG CAPSULE PO SCH ×4 (05:50→22:17)
[2020-03-19] MEDS ORDERED: METHADONE HCL 10 MG TABLET (FOR DETOX USE ONLY) PO ONE (10:00)
[2020-03-19] MEDS: PRENATAL VITAMINS W/ FOLIC ACID TABLET (FP) PO SCH (10:31)
--- NOTE | 2020-03-19 15:05 | PN ---
S CIWA - CIWA Score Nausea/Vomitin-No Nausea/No Vomiting Muscle Tremors: 2 Anxiety: 3 Agitation: 2 Paroxysmal Sweats: 2 Orientation: 0-Oriented Tacttile Disturbances: 2-Mild Itch/Numbness/Burn Auditory Disturbances: 1-Very Mild Visual Disturbances: 0-None Headache: 0-None Present CIWA-Ar Total Score: 12 [facility] COWS - Scale Resting Pulse: 0= [place] 80 or Below Sweatin= Chills/Flushing Restless Observation: 1= Difficult to Sit Still Pupil Size: 0= Normal to Room Light Bone or Joint Aches: 2= Severe Diffuse Aches Runny Nose/ Eye Tearin= None GI Upset > 30mins: 0= None Tremor Observation of Outstretched Hands: 2= Slight Tremor Visible Yawning Observation: 1= 1-2x During Session Anxiety or Irritability: 2=Irritable/Anxious Goose Flesh Skin: 0=Smooth Skin COWS Score: 9 [facility] Progress Note (SOAP) Subjective: Tremors, Sweating, Anxious, Fatigue, Interrupted Sleep. Objective: Patient A & O X 3, Observed Ambulating on Detox Unit Unassisted. In No Acute Distress. 03/19/20 15:04 Vital Signs Temperature 98.9 F 03/19/20 12:40 Pulse Rate 75 03/19/20 12:40 Respiratory Rate 18 03/19/20 12:40 Blood Pressure 132/79 03/19/20 12:40 O2 Sat by Pulse Oximetry (%) 100 03/19/20 12:40 Laboratory Tests 03/17/20 03/18/20 03/18/20 15:15 08:00 08:00 WBC 6.4 RBC 4.62 Hgb 14.1 Hct 42.1 MCV 91.2 MCH 30.6 MCHC 33.5 RDW 13.3 Plt Count 249 MPV 10.0 D Sodium Potassium Chloride Carbon Dioxide Anion Gap BUN Creatinine Est GFR (CKD-EPI)AfAm Est GFR (CKD-EPI)NonAf Random Glucose Calcium Total Bilirubin AST ALT Alkaline Phosphatase Total Protein Albumin Syphilis Serology Non-reactive COVID-19 (BENNY) Not detected 03/18/20 08:00 WBC RBC Hgb Hct MCV MCH MCHC RDW Plt Count MPV Sodium 135 L Potassium 4.4 Chloride 97 L Carbon Dioxide 31 Anion Gap 6 L BUN 15.1 Creatinine 0.7 Est GFR (CKD-EPI)AfAm 122.27 Est GFR (CKD-EPI)NonAf 105.50 Random Glucose 130 H Calcium 8.8 Total Bilirubin 1.1 H AST 20 ALT 24 Alkaline Phosphatase 116 Total Protein 7.6 Albumin 4.0 Syphilis Serology COVID-19 (BENNY) Lab results noted. Assessment: 03/19/20 15:05 WITHDRAWAL SYMPTOMS. Plan: Continue Detox. Increase Daily Oral Water Intake.
[2020-03-19] MEDS: LIDOCAINE 5% TOPICAL PATCH TP SCH (15:55)
[2020-03-19] MEDS: LIDOCAINE PATCH REMOVAL MC SCH (22:17)
[2020-03-19] MEDS: MELATONIN 5 MG TABLETS PO SCH (22:17)
[2020-03-19] MEDS: THIAMINE HCL 100 MG TABLET (FP) PO SCH (22:17)
[2020-03-20] MEDS ORDERED: chlordiazePOXIDE HCL 10 MG CAPSULE PO PRN
[2020-03-20] MEDS: chlordiazePOXIDE HCL 10 MG CAPSULE PO SCH ×4 (05:47→22:47)
[2020-03-20] MEDS ORDERED: METHADONE (DETOX) 10 MG, METHADONE (DETOX) 5 MG PO ONE (10:00)
[2020-03-20] MEDS ORDERED: METHADONE HCL 5 MG TABLET (FOR DETOX USE ONLY) ONE (10:09)
[2020-03-20] MEDS ORDERED: METHADONE HCL 10 MG TABLET (FOR DETOX USE ONLY) ONE (10:09)
[2020-03-20] MEDS: PRENATAL VITAMINS W/ FOLIC ACID TABLET (FP) PO SCH (10:32)
[2020-03-20] MEDS: METHOCARBAMOL 500 MG TABLET PO PRN (10:32)
[2020-03-20] MEDS: LIDOCAINE 5% TOPICAL PATCH TP SCH (10:33)
--- NOTE | 2020-03-20 11:01 | PN ---
[facility] CIWA - CIWA Score Nausea/Vomitin-No Nausea/No Vomiting Muscle Tremors: 2 Anxiety: 4-Mod. Anxious/Guarded Agitation: 1-Slight > Activity Paroxysmal Sweats: 1-Minimal Palms Moist Orientation: 0-Oriented Tacttile Disturbances: 0-None Auditory Disturbances: 0-None Visual Disturbances: 0-None Headache: 0-None Present CIWA-Ar Total Score: 8 [facility] Progress Note (SOAP) Subjective: Complaints of anxiety, tremors, weakness, and sweats. Objective: 03/20/20 11:00 Vital Signs 03/20/20 03/20/20 05:30 08:25 Temperature 97.8 F 97.7 F Pulse Rate 65 77 Respiratory 16 18 Rate Blood Pressure 115/64 131/76 O2 Sat by Pulse 96 96 Oximetry (%) Laboratory Last Values WBC 6.4 K/mm3 (4.0-10.0) 03/18/20 08:00 RBC 4.62 M/mm3 (4.00-5.60) 03/18/20 08:00 Hgb 14.1 GM/dL (11.7-16.9) 03/18/20 08:00 Hct 42.1 % (35.4-49) 03/18/20 08:00 MCV 91.2 fl (80-96) 03/18/20 08:00 MCH 30.6 pg (25.7-33.7) 03/18/20 08:00 MCHC 33.5 g/dl (32.0-35.9) 03/18/20 08:00 RDW 13.3 % (11.9-15.9) 03/18/20 08:00 Plt Count 249 K/MM3 (134-434) 03/18/20 08:00 MPV 10.0 fl (7.5-11.1) D 03/18/20 08:00 Sodium 135 mmol/L (136-145) L 03/18/20 08:00 Potassium 4.4 mmol/L (3.5-5.1) 03/18/20 08:00 Chloride 97 mmol/L (98-107) L 03/18/20 08:00 Carbon Dioxide 31 mmol/L (21-32) 03/18/20 08:00 Anion Gap 6 MMOL/L (8-16) L 03/18/20 08:00 BUN 15.1 mg/dL (7-18) 03/18/20 08:00 Creatinine 0.7 mg/dL (0.55-1.3) 03/18/20 08:00 Est GFR (CKD-EPI)AfAm 122.27 03/18/20 08:00 Est GFR (CKD-EPI)NonAf 105.50 03/18/20 08:00 Random Glucose 130 mg/dL (74-106) H 03/18/20 08:00 Calcium 8.8 mg/dL (8.5-10.1) 03/18/20 08:00 Total Bilirubin 1.1 mg/dL (0.2-1) H 03/18/20 08:00 AST 20 U/L (15-37) 03/18/20 08:00 ALT 24 U/L (13-61) 03/18/20 08:00 Alkaline Phosphatase 116 U/L (45-117) 03/18/20 08:00 Total Protein 7.6 g/dl (6.4-8.2) 03/18/20 08:00 Albumin 4.0 g/dl (3.4-5.0) 03/18/20 08:00 Syphilis Serology Non-reactive (NONREACTIVE) 03/18/20 08:00 COVID-19 (BENNY) Not detected (Not Detected) 03/17/20 15:15 Labs noted. Assessment: 03/20/20 11:00 Alert and oriented x3, in no acute respiratory distress. Full ROM, ambulatory in the unit without assistance. Skin warm to touch. Withdrawal symptoms. Plan: Continue detox protocol.
[2020-03-20] MEDS: THIAMINE HCL 100 MG TABLET (FP) PO SCH (22:47)
[2020-03-20] MEDS: MELATONIN 5 MG TABLETS PO SCH (22:48)
[2020-03-20] MEDS: LIDOCAINE PATCH REMOVAL MC SCH (22:48)
[2020-03-20] MEDS: hydrOXYzine PAMOATE 25 MG CAPSULE (FP) PO PRN (22:49)
[2020-03-21] MEDS: chlordiazePOXIDE HCL 10 MG CAPSULE PO SCH ×2 (05:35→18:01)
--- NOTE | 2020-03-21 08:04 | PN ---
[facility] CIWA - CIWA Score Nausea/Vomitin-No Nausea/No Vomiting Muscle Tremors: 2 Anxiety: 2 Agitation: 1-Slight > Activity Paroxysmal Sweats: No Perspiration Orientation: 0-Oriented Tacttile Disturbances: 1-Very Mild Itch/Numbness Auditory Disturbances: 0-None Visual Disturbances: 0-None Headache: 1-Very Mild CIWA-Ar Total Score: 7 S COWS - Scale Resting Pulse: 0= [place] 80 or Below Sweatin= No chills or Flushing Restless Observation: 0= Sits Still Pupil Size: 0= Normal to Room Light Bone or Joint Aches: 1= Mild Discomfort Runny Nose/ Eye Tearin= Nasal Congestion GI Upset > 30mins: 1= Stomach Cramp Tremor Observation of Outstretched Hands: 2= Slight Tremor Visible Yawning Observation: 0= None Anxiety or Irritability: 2=Irritable/Anxious Goose Flesh Skin: 0=Smooth Skin COWS Score: 7 [facility] Progress Note (SOAP) Subjective: alert,irritable,anxious,interrupted sleep,,pain in the body aching pain Objective: 03/21/20 12:16 Vital Signs Temperature 97.3 F L 03/21/20 08:23 Pulse Rate 67 03/21/20 08:23 Respiratory Rate 18 03/21/20 08:23 Blood Pressure 116/73 03/21/20 08:23 O2 Sat by Pulse Oximetry (%) 96 03/21/20 05:29 Assessment: 03/21/20 12:17 withdrawal symptom Plan: continue detox methadone and librium regimen
[2020-03-21] MEDS ORDERED: METHADONE HCL 10 MG TABLET (FOR DETOX USE ONLY) PO ONE (10:00)
[2020-03-21] MEDS: METHOCARBAMOL 500 MG TABLET PO PRN (10:34)
[2020-03-21] MEDS: LIDOCAINE 5% TOPICAL PATCH TP SCH (10:34)
[2020-03-21] MEDS: hydrOXYzine PAMOATE 25 MG CAPSULE (FP) PO PRN (10:34)
[2020-03-21] MEDS: PRENATAL VITAMINS W/ FOLIC ACID TABLET (FP) PO SCH (10:36)
[2020-03-21 21:53] VITALS: TEMP 97.8
[2020-03-21] MEDS: LIDOCAINE PATCH REMOVAL MC SCH (22:49)
[2020-03-21] MEDS: THIAMINE HCL 100 MG TABLET (FP) PO SCH (22:49)
[2020-03-21] MEDS: MELATONIN 5 MG TABLETS PO SCH (22:50)
[2020-03-22] MEDS ORDERED: chlordiazePOXIDE HCL 10 MG CAPSULE PO ONE (05:00)
[2020-03-22] MEDS ORDERED: METHADONE HCL 5 MG TABLET (FOR DETOX USE ONLY) PO ONE (06:00)
[2020-03-22 06:19] VITALS: BP 106/63; PULSE 63
--- NOTE | 2020-03-22 08:47 | DS ---
[facility] Detox Discharge Summary Admission Date: 03/17/20 Discharge Date: 03/22/20 - History Present History: Alcohol Dependence, Cannabis Dependence, Opioid Dependence - Physical Exam Results Vital Signs: Vital Signs Temperature 97.8 F 03/22/20 05:25 Pulse Rate 63 03/22/20 05:25 Respiratory Rate 16 03/22/20 05:25 Blood Pressure 106/63 03/22/20 05:25 O2 Sat by Pulse Oximetry (%) 96 03/22/20 05:25 Pertinent Admission Physical Exam Findings: Vital Signs Temperature 97.8 F 03/22/20 05:25 Pulse Rate 63 03/22/20 05:25 Respiratory Rate 16 03/22/20 05:25 Blood Pressure 106/63 03/22/20 05:25 O2 Sat by Pulse Oximetry (%) 96 03/22/20 05:25 Laboratory Tests 03/17/20 03/18/20 03/18/20 15:15 08:00 08:00 WBC 6.4 RBC 4.62 Hgb 14.1 Hct 42.1 MCV 91.2 MCH 30.6 MCHC 33.5 RDW 13.3 Plt Count 249 MPV 10.0 D Sodium Potassium Chloride Carbon Dioxide Anion Gap BUN Creatinine Est GFR (CKD-EPI)AfAm Est GFR (CKD-EPI)NonAf Random Glucose Calcium Total Bilirubin AST ALT Alkaline Phosphatase Total Protein Albumin Syphilis Serology Non-reactive COVID-19 (BENNY) Not detected 03/18/20 08:00 WBC RBC Hgb Hct MCV MCH MCHC RDW Plt Count MPV Sodium 135 L Potassium 4.4 Chloride 97 L Carbon Dioxide 31 Anion Gap 6 L BUN 15.1 Creatinine 0.7 Est GFR (CKD-EPI)AfAm 122.27 Est GFR (CKD-EPI)NonAf 105.50 Random Glucose 130 H Calcium 8.8 Total Bilirubin 1.1 H AST 20 ALT 24 Alkaline Phosphatase 116 Total Protein 7.6 Albumin 4.0 Syphilis Serology COVID-19 (BENNY) AAOX3 AMBULATING NO ACUTE DISTRESS LUNGS CTA - Treatment Hospital Course: Detox Protocol Followed, Detoxed Safely, Responded well, Discharged Condition Good, Rehab Referral Accepted - Medication Discharge Medications: Ambulatory Orders Albuterol Sulfate Inhaler - [Ventolin Hfa Inhaler -] 2 inh PO Q4H PRN 03/17/20 - Diagnosis (1) Alcohol dependence with uncomplicated withdrawal Current Visit: Yes Status: Chronic (2) Insomnia Current Visit: No Status: Acute (3) Marihuana dependence Current Visit: No Status: Acute (4) Nicotine dependence Current Visit: Yes Status: Chronic Qualifiers: Nicotine product type: cigarettes Substance use status: uncomplicated Qualified Code(s): F17.210 - Nicotine dependence, cigarettes, uncomplicated (5) Opioid dependence with withdrawal Current Visit: Yes Status: Chronic (6) Sedative, hypnotic or anxiolytic dependence with withdrawal, uncomplicated Current Visit: Yes Status: Chronic (7) Weight loss Current Visit: No Status: Acute (8) Anxiety and depression Current Visit: No Status: Suspected - AMA Did Patient Leave Against Medical Advice: No
== END 2020-03-22 08:43 | disposition home or self-care (01) | DRG 773 ==
LOC: YASAS 13:04 → Y6N 14:38
PROVIDERS: ADMIT Allergy & Immunology; ATTEND Allergy & Immunology
PROC: HZ2ZZZZ Detoxification Services for Substance Abuse Treatment (ICD-10-PCS; principal; 2020-03-17)
DX: F10.230 Alcohol dependence with withdrawal, uncomplicated (principal); F11.23 Opioid dependence with withdrawal; F13.230 Sedative, hypnotic or anxiolytic dependence with withdrawal, uncomplicated; F12.20 Cannabis dependence, uncomplicated; F17.210 Nicotine dependence, cigarettes, uncomplicated; F41.9 Anxiety disorder, unspecified; F32.9 Major depressive disorder, single episode, unspecified; J45.909 Unspecified asthma, uncomplicated; R63.4 Abnormal weight loss; Z68.21 Body mass index [BMI] 21.0-21.9, adult; Z86.79 Personal history of other diseases of the circulatory system; Z91.012 Allergy to eggs; Z59.0 Homelessness
CPT/HCPCS: 36415; 80053; 85027; 86780; U0003